=== PATIENT | female | born 1960 | race Caucasian/White ===

== ENCOUNTER 2019-02-26 10:27 | Inpatient (IN) ==
[2019-02-26] MEDS ORDERED: Naloxone 0.4 MG/ML INJ IVP PRN (12:19)
[2019-02-26] MEDS ORDERED: Acetaminophen 325 MG TABLET PO PRN (12:19)
[2019-02-26] MEDS ORDERED: *HR* Dextrose 50 % in Water (Syg) 50 ML SYRINGE IVP PRN (14:25)
[2019-02-26] MEDS ORDERED: D5% in Water 1,000 ML IVC PRN (14:25)
[2019-02-26] MEDS ORDERED: Furosemide 20 MG/2 ML VIAL IVP ONE (14:25)
[2019-02-26] MEDS ORDERED: Dextrose Gel 15 GM/37.5 ML TUBE PO PRN ×2 (14:25)
[2019-02-26] MEDS ORDERED: Vancomycin 500 MG in 0.9 % Sodium Chloride Mini Bag 100 ML IVPB ONE (14:29)
[2019-02-26] MEDS ORDERED: 0.9 % Sodium Chloride 250 ML IVC SCH (14:30)
[2019-02-26] MEDS ORDERED: levoFLOXacin 500 MG/100 ML 500 MG/100 ML BAG IVPB ONE (14:33)
[2019-02-26] MEDS: Insulin LISPRO 300 UNITS/3 ML VIAL SQ SCH (17:14)
[2019-02-26] MEDS ORDERED: 0.9 % Sodium Chloride 500 ML ONE (17:35)
[2019-02-26] MEDS ORDERED: *HR* Heparin 5,000 UNIT/ML VIAL SQ SCH (18:00)
[2019-02-26] MEDS ORDERED: Perflutren Lipid Microsphere 1.3 ML in 0.9 % Sodium Chloride 8.7 ML IVP ONE (20:52)
[2019-02-26] MEDS ORDERED: PREVYMIS PO SCH (21:00)
[2019-02-26] MEDS ORDERED: Insulin LISPRO 300 UNITS/3 ML VIAL SQ SCH (21:00)
[2019-02-27 04:01] LABS: Hematocrit 25.4 % (35.3-44.9); Hemoglobin 8.4 g/dL (11.5-15.4); Mean Corpuscular HGB Conc 33.1 g/dL (31.6-35.5)
[2019-02-27 04:03] LABS: Immature Platelets 1.5 % (1.1-6.1); Mean Corpuscular Volume 93.7 fL (83.0-100.0); Mean Platelet Volume 9.2 fL (9.4-12.4); Red Blood Count 2.71 M/mcL (3.82-4.97); Red Cell Distribution Width 19.1 % (11.5-14.5); White Blood Count 13.4 K/mcL (4.3-11.1)
[2019-02-27 04:16] LABS: Calcium 9.6 mg/dL (8.6-10.3); Magnesium 1.9 mg/dL (1.6-2.6); Potassium 4.2 mEq/L (3.5-5.1)
[2019-02-27] MEDS ORDERED: traMADol 50 MG TABLET PO PRN (08:13)
[2019-02-27] MEDS: Insulin LISPRO 300 UNITS/3 ML VIAL SQ SCH ×2 (08:48→11:45)
[2019-02-27] MEDS ORDERED: Ascorbic Acid 500 MG TABLET PO SCH (09:00)
[2019-02-27] MEDS ORDERED: Mirtazapine 15 MG TABLET PO SCH (09:00)
[2019-02-27] MEDS ORDERED: Cyanocobalamin (B-12) 1,000 MCG TABLET PO SCH (09:00)
[2019-02-27] MEDS ORDERED: Sennosides 8.6 MG TABLET PO SCH (09:00)
[2019-02-27] MEDS ORDERED: DASATINIB 100 MG PO SCH (09:00)
[2019-02-27] MEDS ORDERED: Gabapentin 100 MG CAPSULE PO SCH (09:00)
[2019-02-27] MEDS ORDERED: Folic Acid 1 MG TABLET PO SCH (09:00)
[2019-02-27] MEDS ORDERED: Famotidine 20 MG TABLET PO SCH (09:00)
[2019-02-27] MEDS ORDERED: predniSONE 5 MG TABLET PO SCH (09:00)
[2019-02-27] MEDS ORDERED: levoFLOXacin 500 MG/100 ML 500 MG/100 ML BAG IVPB SCH (13:00)
[2019-02-27 16:27] VITALS: BP 131/79
[2019-02-27] MEDS ORDERED: Aminoglycoside Consult 1 EACH MC ONE (18:06)
[2019-02-27] MEDS ORDERED: LETERMOVIR 480 MG PO SCH (21:00)
[2019-02-28] MEDS ORDERED: Patiromer Calcium Sorbitex [Veltassa] 8.4 GM PO SCH
[2019-02-28 02:19] LABS: Acinetobacter baumannii by PCR Not Detected (Not Detect); Enterobacteriaceae by PCR Not Detected (Not Detect); Enterococcus by PCR Not Detected (Not Detect); Staphylococcus aureus by PCR DETECTED (Not Detect); Streptococcus agalactiae(B)PCR Not Detected (Not Detect); Streptococcus by PCR Not Detected (Not Detect); Streptococcus pneumoniae PCR Not Detected (Not Detect); Streptococcus pyogenes (A) PCR Not Detected (Not Detect); mecA Methicillin-Resist Gene DETECTED (Not Detect)
[2019-02-28 02:20] LABS: Candida albicans by PCR Not Detected (Not Detect); Candida glabrata by PCR Not Detected (Not Detect); Candida krusei by PCR Not Detected (Not Detect); Candida parapsilosis by PCR Not Detected (Not Detect); Candida tropicalis by PCR Not Detected (Not Detect); Enterobacter cloacae Cmplx PCR Not Detected (Not Detect); Escherichia coli by PCR Not Detected (Not Detect); Klebsiella oxytoca by PCR Not Detected (Not Detect); Klebsiella pneumoniae by PCR Not Detected (Not Detect); Proteus by PCR Not Detected (Not Detect); Pseudomonas aeruginosa by PCR Not Detected (Not Detect); Serratia marcescens by PCR Not Detected (Not Detect)
[2019-02-28] MEDS ORDERED: Dasatinib [Sprycel] 100 MG PO SCH (09:00)
== END 2019-02-27 18:07 | disposition short-term general hospital (02) | DRG 206 ==
LOC: SUATTDRO 12:11 → 2ANU 12:11
PROVIDERS: ADMIT Internal Medicine; ATTEND Family Medicine